=== PATIENT | female | born 1980 | race Caucasian/White ===

== ENCOUNTER 2021-11-02 16:25 | Emergency (ER) | payer BC, SELFPAY ==
--- NOTE | 2021-11-02 16:33 | ED.SKABFB ---
HPI - Skin/Abscess/Foreign Bdy General Chief complaint: Skin/Abscess/Foreign Body Stated complaint: lump on front back ear Time Seen by Provider: 11/02/21 16:33 Source: patient and RN notes reviewed History of Present Illness HPI narrative: Patient is a 41-year-old female who presents the urgent care with complaints of a lump in front of and behind the right ear. Patient states that she was placed on amoxicillin for dental abscesses 1 week ago and she has been taking as prescribed. Patient states that she has sebaceous cyst that run in her family and believes the area behind the ear which is nonpainful, is a cyst. Patient states the lump in front of the right ear is slightly tender and showed up just recently. Patient denies of any fevers. States that she feels much better since being on the amoxicillin. No other acute complaints. No acute distress noted. Patient aware of the plan of care. Some parts of this dictation were generated by voice recognition software and may contain typographical and/or grammatical inaccuracies. Related Data Home Medications Medication Instructions Recorded Confirmed amoxicillin 500 mg capsule 500 mg PO TID 11/02/21 11/02/21 gabapentin 300 mg capsule 300 mg PO TID 11/02/21 11/02/21 hydroxyzine HCl 25 mg tablet 25 mg PO DAILY 11/02/21 11/02/21 quetiapine 200 mg tablet 200 mg PO DAILY 11/02/21 11/02/21 sertraline 50 mg tablet 50 mg PO DAILY 11/02/21 11/02/21 Allergies Allergy/AdvReac Type Severity Reaction Status Date / Time No Known Allergies Allergy Verified 11/02/21 16:42 Review of Systems Review of Systems: CONSTITUTIONAL: Denies fever, chills, or sweats. EYES: Denies visual changes, redness, or discharge. ENT: Denies rhinorrhea, congestion, sore throat, or otalgia. CARDIOVASCULAR: Denies chest pain, palpitations, or edema. RESPIRATORY: Denies cough or dyspnea. GASTROINTESTINAL: Denies abdominal pain, nausea, vomiting, or diarrhea. GENITOURINARY: Denies dysuria or hematuria. SKIN: Reports of a nontender hard lump behind the right ear and a tender lump in front of the right ear MUSCULOSKELETAL: Denies back pain, joint pain, or myalgia. NEUROLOGIC: Denies headache, numbness, or weakness. All other systems reviewed are negative, except as documented in HPI. PMFSH Comments At the time of my signature, I reviewed and agree with the nursing past medical, surgical, social, and family history. There is no relevant family history pertinent to the patient complaint. Exam Narrative: GENERAL: This is a well-nourished, well-developed patient, in no apparent distress. HEAD: normocephalic, atraumatic. EYES: PERRL. Sclera clear/white. Vision is grossly intact. EARS: External ears normal, auditory canals clear and without drainage, TMs normal without perforation. Hearing grossly intact. Mildly tender periauricle lymphadenopathy NOSE: External nose normal with no obvious nasal discharge, nares without redness, no rhinorrhea. THROAT: Mucous membranes moist, posterior pharynx clear. DENTAL: Multiple dentition avulsed at the gumline to maxillary and mandible without erythema, edema or notable abscess. Caries noted throughout NECK: Neck supple, non-tender without lymphadenopathy, masses or thyromegaly. CARDIOVASCULAR: Regular rate and rhythm with murmurs RESPIRATORY: Clear to auscultation. Breath sounds equal bilaterally. No wheezes, rales, or rhonchi. SKIN: Pea-sized nontender sebaceous cyst behind the right ear. Warm, intact with no suspicious lesions or rash, good texture and turgor. NEURO: awake, alert, and oriented to person, place and time. There were no obvious focal neurologic abnormalities. EXTREMITIES: No clubbing, cyanosis, or edema. Course Course Level of Care: Express Care Visit Vital Signs Vital signs: Vital Signs Temperature 98.3 F 11/02/21 16:34 Pulse Rate 87 11/02/21 16:34 Respiratory Rate 14 11/02/21 16:34 Blood Pressure 120/68 11/02/21 16:34 Pulse Oximetry 100 08/2
[2021-11-02 16:34] VITALS: BP 120/68; PULSE 87; RESP 14; TEMP 36.8; O2SAT 100
== END 2021-11-02 17:02 | disposition home or self-care (01) ==
PROVIDERS: Emergency Provider Nurse Practitioner Family
DX: R59.0 Localized enlarged lymph nodes (principal); F32.A Depression, unspecified
CPT/HCPCS: 99212; G0463

== ENCOUNTER 2021-11-11 16:39 | Emergency (ER) | payer BC, SELFPAY ==
[2021-11-11 17:02] VITALS: BP 112/66; PULSE 80; RESP 18; TEMP 36.6; O2SAT 100
--- NOTE | 2021-11-11 17:10 | ED.GENADULT ---
HPI - General Adult General Chief complaint: Unspecified Stated complaint: refill meds Time Seen by Provider: 11/11/21 17:10 Source: patient Mode of arrival: ambulatory Limitations: no limitations History of Present Illness HPI narrative: 41-year-old female with a history of bipolar and anxiety presented requesting medication refills. She states she recently establish with a new PCP who does not prescribe quetiapine or hydroxyzine. She said PCP will refill sertraline. She states the last time she had her medication refilled was from an ER about 1 month ago. She is unable to find a psychiatrist to refill the medications. 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 Denies new complaints. Related Data Home Medications Medication Instructions Recorded Confirmed sertraline 50 mg tablet 50 mg PO DAILY 11/02/21 11/11/21 quetiapine 200 mg tablet 200 mg PO DAILY 11/11/21 11/11/21 Allergies Allergy/AdvReac Type Severity Reaction Status Date / Time No Known Allergies Allergy Verified 11/11/21 17:39 Review of Systems Review of Systems: CONSTITUTIONAL: Denies body aches, fever, chills, or sweats. CARDIOVASCULAR: Denies chest pain, palpitations, or edema. RESPIRATORY: Denies cough or dyspnea. GASTROINTESTINAL: Denies abdominal pain, nausea, vomiting, or diarrhea. SKIN: Denies rash, itching, or wounds. MUSCULOSKELETAL: Denies back pain, joint pain, or myalgia. NEUROLOGIC: Denies headache, numbness, tingling, or weakness. All systems reviewed & are unremarkable except as noted in HPI and below PMFSH Comments At time of signature, I have reviewed and agree with nursing past medical, surgical, social and family history unless otherwise noted. Please see nursing chart for further information. There is no relevant family history pertinent to the presenting complaint Exam Narrative: GENERAL: Well-appearing EYES: EOMI. Conjunctivae normal. ENT: Mucous membranes pink and moist. CHEST: Clear to auscultation. HEART: Regular rate and rhythm. SKIN: Warm, dry, no rash. Capillary refill normal. Normal skin turgor. NEURO: Alert and oriented x3. Gait steady. PSYCH: anxious, talkative Course Course Emergency Course: Patient is aware of diagnosis, understands and agrees to treatment plan. Anticipatory guidance given. Patient agrees to follow-up as directed and is aware of reasons to seek care at the emergency department. Portions of this record may have been created with voice recognition software Level of Care: Express Care Visit Vital Signs Vital signs: Vital Signs Temperature 97.8 F 11/11/21 17:02 Pulse Rate 80 11/11/21 17:02 Respiratory Rate 18 11/11/21 17:02 Blood Pressure 112/66 11/11/21 17:02 Pulse Oximetry 100 11/11/21 17:02 Oxygen Delivery Room Air 11/11/21 17:02 Temperature 97.8 F 11/11/21 17:02 Pulse Rate 80 11/11/21 17:02 Respiratory Rate 18 11/11/21 17:02 Blood Pressure 112/66 11/11/21 17:02 Pulse Oximetry 100 11/11/21 17:02 Oxygen Delivery Room Air 11/11/21 17:02 Medical Decision Making MDM Narrative Medical decision making narrative: Reviewed recent medication refills, appears to have current Rx for sertraline as she said; also appears to have a 30 supply for quetiapine from the ER from 10/21/21. Pt given PCP list and psychiatrist list and is advised to f/u claire. She states she will likely go to the ER again for med refill. She is anxious she will 'self medicate' as she is a recovering addict for one year. Vital Signs Vital Signs: Vital Signs Temperature 97.8 F 11/11/21 17:02 Pulse Rate 80 11/11/21 17:02 Respiratory Rate 18 11/11/21 17:02 Blood Pressure 112/66 11/11/21 17:02 Pulse Oximetry 100 11/11/21 17:02 Oxygen Delivery Room Air 11/11/21 17:02 Temperature 97.8 F 11/11/21 17:02 Pulse Rate 80 11/11/21 17:02 Respiratory Rate 18 11/11/21 17:02 Blood Pressure 112
== END 2021-11-11 17:54 | disposition home or self-care (01) ==
PROVIDERS: Emergency Provider Nurse Practitioner Family; PCP Emergency Medicine
DX: Z76.0 Encounter for issue of repeat prescription (principal); F32.A Depression, unspecified
CPT/HCPCS: 99211; G0463